=== PATIENT | female | born 1980 | race Hispanic/Latino ===

== ENCOUNTER 2016-09-14 13:09 | Emergency (ER) | payer BC, OTHER ==
[2016-09-14 13:26] VITALS: BP 98/57
[2016-09-14] MEDS ORDERED: DECADRON IM ONE (13:58)
--- NOTE | 2016-09-14 14:10 | Emergency Department Report ---
ED General Adult HPI - General Chief complaint: Fever Stated complaint: FEVER Time Seen by Provider: 09/14/16 13:38 Source: patient Mode of arrival: Ambulatory Limitations: No Limitations - History of Present Illness Initial comments: Patient complains of general malaise. She has poison elinor that has become red principally affecting her right volar forearm. She complains of some nonproductive cough and sore throat. He's had intermittent fever. She denies dyspnea. -: days(s) Location: right, upper extremity Radiation: non-radiation Quality: aching Consistency: intermittent Improves with: none Worsens with: none Associated Symptoms: denies other symptoms, cough, other (sore throat) Treatments Prior to Arrival: none - Related Data Home Medications Medication Instructions Recorded Confirmed Last Taken ALBUTEROL Inhaler [Proair] 2 puff IH QID PRN 02/21/13 02/21/13 Unknown Butalb/Acetamin/Caff 50-325-40 1 each PO Q4H PRN 02/21/13 02/21/13 Unknown [Fioricet] Cetirizine HCl [Zyrtec] 10 mg PO DAILY 02/21/13 02/21/13 Unknown Previous Rx's Medication Instructions Recorded Last Taken Type Ibuprofen [Motrin] 800 mg PO TID PRN #30 tablet 02/21/13 Unknown Rx Nitrofurantoin [place]/M-Cryst 100 mg PO Q12HR #10 capsule 09/18/13 Unknown Rx [Macrobid] Sulfamethoxazole/Trimethoprim 1 each PO BID #14 tablet 09/14/16 Unknown Rx [Bactrim DS TAB] Triamcinolone 0.5% [Kenalog 0.5% 1 applic TP TID #60 gram 09/14/16 Unknown Rx CREAM] Allergies Allergy/AdvReac Type Severity Reaction Status Date / Time erythromycin base Allergy Anaphylaxis Verified 02/21/13 09:30 [Erythromycin Base] ED Review of Systems ROS: Stated complaint: FEVER Other details as noted in HPI Constitutional: denies: chills, fever Eyes: denies: eye pain, eye discharge, vision change ENT: throat pain. denies: ear pain Respiratory: cough. denies: shortness of breath, wheezing Cardiovascular: denies: chest pain, palpitations Endocrine: no symptoms reported Gastrointestinal: denies: abdominal pain, nausea, diarrhea Genitourinary: denies: urgency, dysuria, discharge Musculoskeletal: denies: back pain, joint swelling, arthralgia Skin: rash. denies: lesions Neurological: denies: headache, weakness, paresthesias Psychiatric: denies: anxiety, depression Hematological/Lymphatic: denies: easy bleeding, easy bruising ED Past Medical Hx - Past Medical History Previous Medical History?: Yes Hx Headaches / Migraines: Yes Hx Asthma: Yes Additional medical history: Complicated/hemorragic ovarian cysts - Surgical History Past Surgical History?: Yes Hx Cholecystectomy: Yes Additional Surgical History: Tonsilectomy, hysterectomy - Social History Smoking Status: Never Smoker Substance Use Type: None - Medications Home Medications: Home Medications Medication Instructions Recorded Confirmed Last Taken Type ALBUTEROL Inhaler [Proair] 2 puff IH QID PRN 02/21/13 02/21/13 Unknown History Butalb/Acetamin/Caff 50-325-40 1 each PO Q4H PRN 02/21/13 02/21/13 Unknown History [Fioricet] Cetirizine HCl [Zyrtec] 10 mg PO DAILY 02/21/13 02/21/13 Unknown History Ibuprofen [Motrin] 800 mg PO TID PRN #30 tablet 02/21/13 Unknown Rx Nitrofurantoin [place]/M-Cryst 100 mg PO Q12HR #10 capsule 09/18/13 Unknown Rx [Macrobid] Sulfamethoxazole/Trimethoprim 1 each PO BID #14 tablet 09/14/16 Unknown Rx [Bactrim DS TAB] Triamcinolone 0.5% [Kenalog 0.5% 1 applic TP TID #60 gram 09/14/16 Unknown Rx CREAM] ED Physical Exam - General Limitations: No Limitations General appearance: alert, in no apparent distress - Head Head exam: Present: atraumatic, normocephalic - Eye Eye exam: Present: normal appearance, PERRL, EOMI. Absent: scleral icterus - ENT ENT exam: Present: normal exam (no redness at all of the anterior pharynx), mucous membranes moist - Neck Neck exam: Present: normal inspection, lymphadenopathy (mild) - Respiratory Respiratory exam: Present: normal lung sounds bilaterally. Absent: respiratory distress - Cardiovascular Cardiovascular Exam: Present: regular rate, normal rhythm. Absent: systolic murmur, diastolic murmur, rubs, gallop - GI/Abdominal GI/Abdominal exam: Present: soft, normal bowel sounds. Absent: distended, tenderness, guarding, rebound, rigid - Extremities Exam Extremities exam: Present: other (is evidence of rhus dermatitis with erythema of the volar forearm of the right arm) - Back Exam Back exam: Present: normal inspection - Neurological Exam Neurological exam: Present: alert, oriented X3, CN II-XII intact. Absent: motor sensory deficit - Psychiatric Psychiatric exam: Present: normal affect, normal mood - Skin Skin exam: Present: warm, dry, intact, normal color. Absent: rash ED Course Vital Signs 09/14/16 13:14 Temperature 97.8 F Pulse Rate 72 Respiratory 16 Rate Blood Pressure 98/57 O2 Sat by Pulse 100 Oximetry - Reevaluation(s) Reevaluation #1: Given Decadron IM. Discussed follow-up. 09/14/16 14:12 Critical care attestation.: If time is entered above; I have spent that time in minutes in the direct care of this critically ill patient, excluding procedure time. ED Disposition Clinical Impression: Rhus dermatitis, Cellulitis of right forearm, Viral URI Disposition: DISCHARGED TO HOME OR SELFCARE Is pt being admited?: No Does the pt Need Aspirin: No Condition: Stable Instructions: Poison Elinor (ED), Cellulitis (ED), Viral Syndrome (ED) Additional Instructions: Rest, increase fluids, follow-up with primary care provider. Rx as directed. Return any acute change or worsening symptoms. Prescriptions: Sulfamethoxazole/Trimethoprim [Bactrim DS TAB] 1 each PO BID #14 tablet Triamcinolone 0.5% [Kenalog 0.5% CREAM] 1 applic TP TID #60 gram Referrals: PRIMARY CARE, [Primary Care Provider] - 2-3 Days Forms: Work/School Release Form(ED) Time of Disposition: 14:13
== END 2016-09-14 14:32 | disposition home or self-care (01) ==
LOC: ED 13:09
DX: L23.7 Allergic contact dermatitis due to plants, except food (principal); L03.113 Cellulitis of right upper limb; J06.9 Acute upper respiratory infection, unspecified
CPT/HCPCS: 96372; 99282; J1100

== ENCOUNTER 2016-10-01 11:55 | Emergency (ER) | payer BC, OTHER ==
[2016-10-01 12:10] VITALS: BP 130/70
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
== END 2016-10-01 14:00 | disposition home or self-care (01) ==
LOC: ED 11:55
DX: S09.90XA Unspecified injury of head, initial encounter (principal); S00.511A Abrasion of lip, initial encounter; G43.909 Migraine, unspecified, not intractable, without status migrainosus; J45.909 Unspecified asthma, uncomplicated; Z90.49 Acquired absence of other specified parts of digestive tract; Z90.710 Acquired absence of both cervix and uterus; Z90.89 Acquired absence of other organs; W51.XXXA Accidental striking against or bumped into by another person, initial encounter; Y93.89 Activity, other specified; Y99.8 Other external cause status; Y92.89 Other specified places as the place of occurrence of the external cause
CPT/HCPCS: 70450; 70486; 72125